=== PATIENT | male | born 1945 | race Caucasian/White ===

== ENCOUNTER → 2020-07-31 | Outpatient (CLI) | payer OTHER | LOC: LAB 10:53 | PROVIDERS: ATTEND Nurse Practitioner Family | DX: R51.9 Headache, unspecified (principal) | CPT/HCPCS: 36415; 86140 ==

== ENCOUNTER → 2021-01-23 | Outpatient (CLI) | payer OTHER ==
--- NOTE | 2021-01-23 11:19 | RAD ---
PQRS Compliance Statement: One or more of the following individualized dose reduction techniques were utilized for this examinat ion: 1. Automated exposure control 2. Adjustment of the mA and/or kV according to patient size 3. Use of iterative reconstruction technique CT THORAX WO 01/23/2021 10:31 AM Indication: Malignancy, restaging COMPARISON: PET/CT 12/24/2016. TECHNIQUE: Multiple axial CT images of the chest were obtained without intravenous contrast. Coronal sagittal reformats are provided. FINDINGS: Moderate centrilobular pulmonary emphysema is identified. Subpleural soft tissue thickening along the right lung apex with previously seen solid noncalcified pulmonary nodule not visualized on examinati on. Subpleural thickening measures 9 mm in maximal thickness. Findings favor posttreatment related ch anges. There is volume loss in the left upper lobe with wedge-shaped consolidative change in bandlike thickening in the site of previously seen solid noncalcified pulmonary nodule. There is nodular thic kening along the left suprahilar region measuring approximately 1.5 x 1.3 cm (series 2, image 36). No pleural effusions, pulmonary vascular congestion or pneumothorax. Heart size within normal limits. T hree-vessel coronary artery vascular calcifications are present. Limited evaluation of hilar lymphade nopathy secondary to lack of intravenous contrast. Precarinal lymph node is normal in caliber measuri ng 6 mm. Calcified right hilar lymph nodes suggest sequela of prior treatment or granulomatous exposu re. Upper abdomen is normal. Adrenal glands are normal in appearance. Simple cyst measures 1.6 cm in the posterior interpolar right kidney. Mildly displaced fracture involving the left anterolateral thi rd and fourth ribs. IMPRESSION: 1. Previously seen nodular opacity in the right lung apex has either resolved or is matted against th e anterior right lung apex with persistent subpleural nodular opacity. Findings favor treatment relat ed changes although comparison with any recent imaging could be of benefit. 2. Previously seen nodular opacity in the left upper lobe has predominantly resolved. However, there is more consolidative change towards the left suprahilar region with nodular opacity measuring 1.5 x 1.3 cm. Comparison with prior imaging could be of benefit. Findings favor posttreatment related camargo es although residual or recurrent disease remains a differential consideration. 3. Mildly displaced fractures involving the anterolateral left third and fourth ribs. Electronically signed by: Fifi Fountain MD (01/23/2021 11:16 AM) [id number]
== END ==
LOC: CT 10:21
PROVIDERS: ATTEND Internal Medicine Hematology & Oncology
DX: C34.11 Malignant neoplasm of upper lobe, right bronchus or lung (principal); S22.42XA Multiple fractures of ribs, left side, initial encounter for closed fracture; X58.XXXA Exposure to other specified factors, initial encounter; Y93.89 Activity, other specified; Y92.89 Other specified places as the place of occurrence of the external cause; Y99.8 Other external cause status
CPT/HCPCS: 71250

== ENCOUNTER → 2021-04-14 | Outpatient (CLI) | payer OTHER ==
--- NOTE | 2021-04-14 16:25 | RAD ---
EXAM: CT CHEST WITHOUT CONTRAST HISTORY: Non-small cell lung carcinoma COMPARISON: 01/23/2021 TECHNIQUE: Helical CT of the chest performed without contrast. Coronal and sagittal reformats were o btained. One or more of the following individualized dose reduction techniques were utilized for this examinat ion: 1. Automated exposure control 2. Adjustment of the mA and/or kV according to patient size 3. Use of iterative reconstruction technique. FINDINGS: Thyroid gland and thoracic inlet: Normal. Heart and great vessels: Heart is normal in size. There are coronary artery calcifications. No perica rdial effusion. Thoracic aorta is normal in caliber. Mediastinum and milton: No mediastinal or hilar lymphadenopathy. There are calcified right hilar lymph nodes. Lungs and pleura: Unchanged subpleural nodule in the anterior right apex measuring 1.5 x 1.1 cm with associated volume loss. Bandlike confluent opacities in the suprahilar right upper lobe with areas of nodularity are unchanged. There is mild associated volume loss. A calcified granuloma in the right l ower lobe is unchanged. There is mild emphysema. Central airways are clear. No pleural effusion. Chest wall and axillae: Unremarkable. No axillary lymphadenopathy. Upper abdomen: 3.5 cm simple cyst in the right kidney. Bones: Old left anterior third and fourth rib fractures are unchanged. IMPRESSION: Stable appearance of the lungs with an unchanged subpleural nodule in the anterior right apex and bandlike confluent opacities with some areas of nodularity in the suprahilar left upper lobe . Findings may reflect treatment changes. Recurrent or residual malignancy is not entirely excluded. No new abnormality. Electronically signed by: Virginia Paiz MD (04/14/2021 4:23 PM) [id number]
== END ==
LOC: CT 11:20
PROVIDERS: ATTEND Internal Medicine Hematology & Oncology
DX: S22.42XD Multiple fractures of ribs, left side, subsequent encounter for fracture with routine healing (principal); C34.11 Malignant neoplasm of upper lobe, right bronchus or lung; R91.1 Solitary pulmonary nodule; I25.10 Atherosclerotic heart disease of native coronary artery without angina pectoris; J84.10 Pulmonary fibrosis, unspecified; J43.9 Emphysema, unspecified; X58.XXXD Exposure to other specified factors, subsequent encounter
CPT/HCPCS: 71250

== ENCOUNTER → 2021-08-13 | Outpatient (CLI) | payer OTHER ==
--- NOTE | 2021-08-13 15:35 | RAD ---
EXAMINATION: CT Chest Without IV contrast. INDICATION:76 years, Male, non-small cell lung cancer. Follow-up exam. COMPARISON: 04/14/2021. TECHNIQUE: Spiral CT was obtained from the jugular notch through the posterior costophrenic recess. S agittal and coronal reformats were obtained. Exposure: One or more of the following individualized dose reduction techniques were utilized for thi s examination: 1. Automated exposure control 2. Adjustment of the mA and/or kV according to patient size 3. Use of iterative reconstruction technique. FINDINGS: LUNGS/PLEURA: Central airways are patent. Mild emphysema. Similar pleural-based nodule in the right l shaun apex measures 1.5 cm, with mild volume loss. Similar confluent reticular and nodular opacities in the left suprahilar lung with mild volume loss. No new focal consolidation, pleural effusion or pneu mothorax. No suspicious pulmonary nodule. Calcified granuloma in the right lower lobe. MEDIASTINUM: No pathologic mediastinal or hilar adenopathy. Calcified granuloma in the right hilum Th e thoracic aorta and pulmonary arteries are normal in caliber. The heart is normal in size. No perica rdial effusion. Moderate calcified coronary atherosclerosis. The visualized thyroid and the esophagus are unremarkable. AXILLA/SOFT TISSUE: No supraclavicular or axillary adenopathy. Regional soft tissues are within xena l limits. UPPER ABDOMEN: The visualized upper abdomen appears unremarkable, within limitation of the exam. BONES: No evidence of acute fractures or aggressive osseous lesions. IMPRESSION: 1. Similar pleural-based nodule in the right lung apex with mild volume loss. Similar confluent reti cular and nodular opacities in the left suprahilar lung with mild volume loss. Findings favor posttre atment changes. 2. No new findings to suggest recurrent tumor or metastasis. Electronically signed by: Veronica Riggs MD (08/13/2021 3:32 PM) [facility]
== END ==
LOC: CT 10:11
PROVIDERS: ATTEND Internal Medicine Hematology & Oncology
DX: C34.11 Malignant neoplasm of upper lobe, right bronchus or lung (principal); R91.1 Solitary pulmonary nodule; R43.9 Unspecified disturbances of smell and taste; J84.10 Pulmonary fibrosis, unspecified; I25.10 Atherosclerotic heart disease of native coronary artery without angina pectoris
CPT/HCPCS: 71250